=== PATIENT | female | born 1990 | race Caucasian/White ===

== ENCOUNTER 2019-09-28 08:12 | Emergency (ER) | payer MEDICAID ==
[~2019-09-28] VITALS: Ht 154.9 cm; Wt 94.0 kg
[~2019-09-28 08:12] MED LIST: FERR-43 PO; PREN-88 PO
[2019-09-28] MEDS ORDERED: SODIUM CHLORIDE 0.9% 1,000 ML IV ONE (08:35)
[2019-09-28] MEDS ORDERED: KETOROLAC 30MG/ML VIAL IV STA (08:35)
[2019-09-28] MEDS ORDERED: METOCLOPRAMIDE HCL 10MG/2ML VIAL IV ONE (08:45)
[2019-09-28 08:54] LABS: BASOPHILS % 0.4 % (0.0-2.0); EOSINOPHILS % 0.9 % (0.0-5.0); HEMATOCRIT. 41.4 % (36.0-48.0); LYMPHOCYTES % 23.5 % (20.0-50.0); MEAN CORPUSCULAR VOLUME 91.6 fL (81.0-99.0); MEAN PLATELET VOLUME 8.2 fl (7.4-10.4); MONOCYTES % 5.1 % (2.0-8.0); NEUTROPHILS % 70.1 % (40.0-76.0); PLATELET 288 x1000/uL (130-400); RED BLOOD CELL COUNT 4.52 mill/uL (4.2-5.4); RED CELL DISTRIBUTION WIDTH 13.4 % (11.6-14.6)
[2019-09-28 08:59] LABS: CHLORIDE 106 mEq/L (98-107)
[2019-09-28 09:38] VITALS: BP 110/56
== END 2019-09-28 09:42 | disposition home or self-care (01) ==
LOC: ER 08:12
DX: R51 Headache (principal); R20.2 Paresthesia of skin
CPT/HCPCS: 36415; 80053; 85025; 96374; 96375; 99283; J1885; J2765; J7030